=== PATIENT | female | born 1970 | race Caucasian/White ===

== ENCOUNTER 2022-09-07 08:21 | Day surgery (SDC) | payer OTHER, SELFPAY ==
[2022-08-30 13:35] VITALS: BMI 25.1
[2022-09-07 08:53] VITALS: BP 147/97; PULSE 90; RESP 16; TEMP 36.4; O2SAT 100; BMI 26.1
[2022-09-07] MEDS: LACTATED RINGERS 1,000 ML 42 ML IV (09:15)
--- NOTE | 2022-09-07 10:59 | PM.PREOP ---
Pre-operative Note Interval Note History & Physical reviewed/Exam performed by Physician: Yes Changes to H&P: No
--- NOTE | 2022-09-07 11:00 | P.OP_ITS ---
Operative Date/Time/Diagnoses Date of procedure: 09/07/22 Time of procedure: 11:00 Pre-op diagnosis: Right hallux abductovalgus with bunion, pain Post-op diagnosis: same Procedure & Clinicians Procedure: Right first metatarsocuneiform arthrodesis with bunionectomy Same procedure as scheduled: Yes Indications: 52-year-old female with painful bunion on the right foot. Conservative measures have failed to alleviate her pain and she wished to have surgical intervention this time. We spoke with risks, potential complications, alternatives, and expected outcomes. Consent was signed, there are no contraindications to the procedure at this time. Surgeon: Selin Jonas Click Yes if Unassisted: Yes Anesthesia Type: General Operative Notes Closure Type: primary Specimen(s): none sent Prosthetic devices, grafts, tissues, transplants, or devices: Cerulean Lapidus plate, 4.0 cannulated screw, 2.7 screws (4). Estimated Blood Loss (mL): 40 Blood products transfused: none Tourniquet time (min): 85 Procedure in detail: The patient was brought to the operating room and placed on the operating table in the supine position. The tourniquet was placed about the right thigh. Well padded, appropriately aligned. After induction of general anesthesia the right foot and ankle were prepped and draped in the usual aseptic manner. The tourniquet was inflated. Incision was made over the right 1st metatarsal cuneiform joint extending to the 1st metatarsophalangeal joint. The incision was deepened through subcutaneous tissues being careful to identify and retract all vital neurovascular structures. All bleeders were cauterized and ligated as necessary. A capsulotomy was performed to the 1st MTPJ exposing the enlarged medial eminence of the first metatarsal head. The saw was used to resect the medial eminence. A rasp was used to reduce the sharp edges of the bone. Attention was then directed to the 1st metatarsocuneiform joint which was entered. The joint was exposed and mobilized. A saw and osteotomes were used to resect the cartilage base of the 1st metatarsal and the distal leading edge of the medial cuneiform. This was done at a slight angle on the medial cuneiform to allow for closure of the intermetatarsal angle. The angle was then able to be closed and the alignment was good. A drill was used to fenestrate either side of the former metatarsocuneiform joint and fish scaling was also used. The area was irrigated with copious amounts normal sterile saline. With the aid of C-arm the guidewire was placed for temporary fixation through the 1st metatarsocuneiform joint. Next, the plate was trialed and the lag screw was placed from distal medial to proximal lateral. The fusion site showed good compression and closure. The plate was then attached with the corresponding screws in the normal AO technique. This was reviewed on C-arm and noted to be strong and in appropriate alignment. Once this was loaded it would appear that there did not need to be a distal metatarsal osteotomy or phalangeal osteotomy and instead capsule balancing techniques with the soft tissue were appropriate. Once again after irrigation the medial 1st metatarsophalangeal capsule was resected and closed down in alignment with Vicryl. The tourniquet was deflated and a prompt hyperemic response was seen in the foot. Deep and subcutaneous closure was closed performed with Vicryl, and nylon to the skin. The foot was dressed with a lightly compressive sterile dressing and splint in alignment. She was then placed in a postoperative boot and transferred to PACU with vital signs stable. Complications: none Post-operative Condition: stable Disposition: PACU Plan for aftercare: Following a period of postoperative monitoring the patient will be discharged to home on written and oral postoperative instructions including keeping the dressing dry and intact, no weight bearing to the surgical foot, icing and elevating the foot when seated at home. DVT prevention techniques have been reviewed.
[2022-09-07] MEDS: CEFAZOLIN 2 GM/100 ML PREMIX 100 ML IV (11:31)
--- NOTE | 2022-09-07 11:59 | SUR.OPER ---
Supine on padded OR bed, head on pillow, arms secured on padded arm boards at <90 degrees abduction, legs uncrossed, safety belt at thigh, tape over blanket over lower left leg. Gel bump under right flank
[2022-09-07] MEDS: BUPIVACAINE 0.25% (PF) VIAL 30 ML INJ (12:10)
[2022-09-07 14:02] VITALS: BP 110/80; PULSE 72; RESP 12; TEMP 35.9; O2SAT 99
[2022-09-07 14:05] VITALS: BP 116/81; PULSE 80; RESP 16; O2SAT 98
[2022-09-07 14:11] VITALS: BP 114/83; PULSE 82; RESP 16; O2SAT 94
[2022-09-07] MEDS: HYDROCODONE/ACET 5/325 TABLET 1 TAB PO (14:15)
[2022-09-07 14:19] VITALS: BP 123/83; PULSE 70; RESP 22; O2SAT 98
[2022-09-07] MEDS: OXYCODONE/ACETAMINOPHEN 5/325 TABLET 1 TAB PO (14:29)
== END 2022-09-07 14:46 | disposition home or self-care (01) ==
PROVIDERS: PCP Family Medicine; Referring Provider Podiatrist; Visit Provider Podiatrist
PROC: (CPT 28297; principal; 2022-09-07 10:15)
PROC: 0QBN0ZZ Excision of Right Metatarsal, Open Approach (ICD-10-PCS; CPT 28292; 2022-09-07 10:15)
DX: M20.11 Hallux valgus (acquired), right foot (principal)
CPT/HCPCS: 28297; J0690; J1100; J1885; J2250; J2405; J2704; J3010